=== PATIENT | male | born 1960 | race African-American/Black ===

== ENCOUNTER 2022-01-29 19:26 | Inpatient (IN) | payer MEDICARE, MEDICAID ==
[2022-01-29] MEDS ORDERED: Acetaminophen 325 MG TAB PO PRN (20:46)
[2022-01-29] MEDS ORDERED: Ondansetron PF 4 MG/2 ML Vial IVP PRN (20:46)
[2022-01-29] MEDS ORDERED: Calcium Carbonate 500 MG ChewTAB PO PRN (20:46)
[2022-01-29] MEDS ORDERED: Senokot S 8.6-50 MG TAB PO PRN (20:46)
[2022-01-29] MEDS ORDERED: Lorazepam 2 MG/ML VIAL SLOW IVP PRN (20:48)
[2022-01-29] MEDS ORDERED: Lactated Ringer's 500 ML IV SCH (21:00)
[2022-01-29 21:02] VITALS: BMI 34.7
[2022-01-29] MEDS ORDERED: Fosphenytoin Sodium 100 MG in Sodium Chloride 0.9% 50 ML IVPB SCH (21:15)
[2022-01-29 21:50] LABS: Lactic Acid 3.9 mmol/L (0.5-2.2)
[2022-01-29 21:53] LABS: CK (CPK) 169 U/L (30-200); Phosphorus 3.7 mg/dL (2.3-4.7)
[2022-01-29] MEDS: levETIRAcetam 500 MG/5 ML VIAL SLOW IVP SCH (22:13)
[2022-01-29] MEDS: Divalproex Sodium 250 MG (DR) TAB PO SCH (22:14)
[2022-01-29] MEDS: Famotidine/PF 20 mg/2ml Vial SLOW IVP SCH (22:14)
[2022-01-29] MEDS: Metoprolol Tartrate 25 MG TAB PO SCH (22:15)
[2022-01-29] MEDS: Atorvastatin Calcium 10 MG TAB PO SCH (22:15)
[2022-01-29 22:40] LABS: CKMB 3.4 ng/mL (0-6.6)
[2022-01-29] MEDS ORDERED: Lactated Ringer's 1,000 ML IV SCH (23:00)
[2022-01-29 23:19] LABS: Bilirubin Neg (Negative); Blood, Urine 25 (Negative); Clarity Clear (Clear); Glucose, Urine (Dipstick) Normal (Negative); Ketone, Urine Negative (Negative); Leukocyte Negative (Negative); Nitrite Negative (Negative); Protein, Urine (Dipstick) 15 mg/dl (Neg-Trace); Urobilinogen Normal mg/dL (Less than 2)
[2022-01-29 23:26] LABS: Squamous Epithelial None Seen HPF (0-3); WBC/HPF 0-3 HPF (0-3)
[2022-01-29 23:27] LABS: Bacteria/HPF None Seen HPF (None Seen)
[2022-01-30 04:09] LABS: Hemoglobin 12.3 g/dL (13.5-17.5); Mean Corpuscular HGB CONC 35.3 g/dL (32.0-36.0); Mean Corpuscular Hemoglobin 30.2 pg (27.0-33.0); Mean Corpuscular Volume 85.5 fl (81.2-95.1); Mean Platelet Volume 10.1 fl (7.4-10.4); Platelet Count 202 10x3/uL (150-450); RBC Distribution Width 13.2 % (11.5-14.5); Red Blood Cell (RBC) Count 4.07 10x6/uL (4.32-5.72); White Blood Cell (WBC) Count 7.7 10x3/uL (3.5-10.5)
[2022-01-30 04:20] LABS: ALT (SGPT) 29 U/L (8-55); AST (SGOT) 32 U/L (5-34); Albumin 3.4 g/dL (3.4-4.8); Alkaline Phosphatase 92 U/L (40-110); Anion Gap 13 mmol/L (10-20); BUN (Urea Nitrogen) 14 mg/dL (8.4-25.7); Bilirubin, Total 0.4 mg/dL (0.2-1.2); Calc. Creatinine Clearance 162 mL/min (70-130); Calcium 8.8 mg/dL (7.8-10.44); Carbon Dioxide 24 mmol/L (23-31); Chloride 103 mmol/L (98-107); Cholesterol 114 mg/dl (< 200 Desired); Estimated GFR 101; Glucose 101 mg/dL (80-115); Potassium 4.6 mmol/L (3.5-5.1); Protein, Total 7.4 g/dL (5.8-8.1); Sodium 135 mmol/L (136-145); Triglycerides 107 mg/dL (Less than 150)
[2022-01-30 04:57] LABS: HDL Cholesterol 27 mg/dL (>60 Neg Risk)
[2022-01-30 05:06] LABS: CKMB 3.5 ng/mL (0-6.6)
[2022-01-30 05:35] LABS: LDL Cholesterol, Calculated 108 mg/dL
[2022-01-30 06:48] LABS: MDiff Complete? YES
[2022-01-30 06:49] LABS: Platelet Morphology Comment Appears Adequate
[2022-01-30 06:55] LABS: Lymphocytes 24 % (21-51); Metamyelocyte 1 % (0-0); Monocytes 16 % (0-10); Neutrophil 53 % (42-75); Reactive Lymphocytes 6 % (0-10)
[2022-01-30] MEDS: levETIRAcetam 500 MG/5 ML VIAL SLOW IVP SCH (08:46)
[2022-01-30] MEDS: Enoxaparin Sodium 40 MG/0.4 ML SYRINGE SC SCH (08:46)
[2022-01-30] MEDS: Metoprolol Tartrate 25 MG TAB PO SCH ×2 (08:47→22:57)
[2022-01-30] MEDS: Divalproex Sodium 250 MG (DR) TAB PO SCH ×2 (08:47→22:58)
[2022-01-30] MEDS: Famotidine/PF 20 mg/2ml Vial SLOW IVP SCH ×2 (08:47→22:58)
[2022-01-30] MEDS: Aspirin 81 mg Enteric Coated Tablet PO SCH (08:47)
[2022-01-30] MEDS: OLANZapine 5 MG TAB PO SCH (08:51)
[2022-01-30] MEDS ORDERED: Fosphenytoin Sodium 100 MG in Sodium Chloride 0.9% 50 ML IVPB SCH (09:00)
[2022-01-30] MEDS: levETIRAcetam 500 MG TAB PO SCH (22:58)
[2022-01-30] MEDS: Atorvastatin Calcium 10 MG TAB PO SCH (22:58)
[2022-01-31] MEDS: Famotidine/PF 20 mg/2ml Vial SLOW IVP SCH ×2 (09:29→20:21)
[2022-01-31] MEDS: Enoxaparin Sodium 40 MG/0.4 ML SYRINGE SC SCH (09:29)
[2022-01-31] MEDS: levETIRAcetam 500 MG TAB PO SCH ×2 (09:30→20:20)
[2022-01-31] MEDS: Divalproex Sodium 250 MG (DR) TAB PO SCH ×2 (09:30→20:21)
[2022-01-31] MEDS: Aspirin 81 mg Enteric Coated Tablet PO SCH (09:30)
[2022-01-31] MEDS: Metoprolol Tartrate 25 MG TAB PO SCH ×2 (09:30→20:20)
[2022-01-31] MEDS: OLANZapine 5 MG TAB PO SCH (09:31)
[2022-01-31] MEDS: Atorvastatin Calcium 10 MG TAB PO SCH (20:20)
[2022-02-01] MEDS: Famotidine/PF 20 mg/2ml Vial SLOW IVP SCH (08:30)
[2022-02-01] MEDS: Enoxaparin Sodium 40 MG/0.4 ML SYRINGE SC SCH (08:30)
[2022-02-01] MEDS: OLANZapine 5 MG TAB PO SCH (08:30)
[2022-02-01] MEDS: Aspirin 81 mg Enteric Coated Tablet PO SCH (08:30)
[2022-02-01] MEDS: Metoprolol Tartrate 25 MG TAB PO SCH (08:31)
[2022-02-01] MEDS: Divalproex Sodium 250 MG (DR) TAB PO SCH (08:32)
[2022-02-01] MEDS: levETIRAcetam 500 MG TAB PO SCH (08:32)
[2022-02-01 12:06] VITALS: BP 126/75; TEMP 97.3
== END 2022-02-01 15:33 | disposition home health service (06) | DRG 101 ==
LOC: OBSVTOIN 19:26 → INTOOBSV 19:26 → CSHTELE 19:26 → UNDOADMOB 19:26 → CSHTELE 01-31 09:47 → OBSVTOIN 01-31 09:47
PROVIDERS: ADMIT Internal Medicine; ATTEND Internal Medicine
DX: G40.919 Epilepsy, unspecified, intractable, without status epilepticus (principal); E87.1 Hypo-osmolality and hyponatremia; E87.2 Acidosis; Z20.822 Contact with and (suspected) exposure to COVID-19; R79.89 Other specified abnormal findings of blood chemistry; E03.9 Hypothyroidism, unspecified; Z87.2 Personal history of diseases of the skin and subcutaneous tissue; Z79.899 Other long term (current) drug therapy; Z85.038 Personal history of other malignant neoplasm of large intestine; Z60.2 Problems related to living alone; R77.8 Other specified abnormalities of plasma proteins
CPT/HCPCS: 36415; 51701; 70450; 71045; 80053; 80061; 80164; 80177; 80185; 80307; 81003; 81015; 82550; 82553; 83036; 83605; 83735; 84100; 84146; 84443; 84484; 85025; 87040; 87086; 93005; 93010; 93306; 94760; 96372; 96374; 96375; 96376; G0378; J1650; J1953; J2060; J2405; J7120; Q2009; S0028; U0003; U0005